=== PATIENT | male | born 1975 ===

== ENCOUNTER → 2019-03-17 | Outpatient (REF) | LOC: M LAB LCGH 11:52 | PROVIDERS: ATTEND Surgery | DX: K40.90 Unilateral inguinal hernia, without obstruction or gangrene, not specified as recurrent (principal) ==

== ENCOUNTER → 2019-04-06 | Outpatient (REF) | LOC: M LAB LCGH 19:01 | PROVIDERS: ATTEND Surgery | DX: Z30.2 Encounter for sterilization (principal) ==